=== PATIENT | female | born 1970 | race African-American/Black ===

== ENCOUNTER 2023-08-11 15:35 | Emergency (ER) | payer OTHER ==
[2023-08-11 15:48] VITALS: RESP 18; TEMP 98; BMI 19.1
[2023-08-11 16:31] VITALS: BP 169/99; PULSE 88
[2023-08-11] MEDS: NIFEdipine E.R. 90 MG TABLET PO ONE (17:21)
== END 2023-08-11 17:22 | disposition home or self-care (01) ==
LOC: JER 15:35
DX: I10 Essential (primary) hypertension (principal)
CPT/HCPCS: 99283-25